=== PATIENT | female | born 1950 | race Two or more races ===

== ENCOUNTER 2023-07-06 16:47 | Emergency (ER) | payer OTHER ==
[~2023-07-06] VITALS: Ht 134.6 cm; Wt 51.3 kg
[2023-07-06] MEDS ORDERED: LEVOTHYROXINE25 MCG PO (16:55)
[2023-07-06 19:05] LABS: HEMATOCRIT 33.8 % (36.0-45.00); HEMOGLOBIN 11.5 g/dL (12.0-15.00); MEAN CELL VOLUME 86.1 fL (80.00-100.00); MEAN CORPUSCULAR HEMOGLOBIN 29.4 pg (27.00-32.0); MEAN CORPUSCULAR HGB CONC 34.1 g/dl (32.0-36.0); PLATELET COUNT 226 K/uL (150-450); RED BLOOD COUNT 3.92 M/uL (4.00-6.00); RED CELL DISTRIBUTION WIDTH 16.5 % (11.5-14.5)
[2023-07-06 19:20] LABS: INR 1.04; PARTIAL THROMBOPLASTIN TIME 24.9 SECONDS (22.0-34.0); PROTHROMBIN TIME 10.9 SECONDS (9.0-11.5)
[2023-07-06 19:21] LABS: CALCIUM 9.7 mg/dL (8.5-10.1); CREATININE SERUM 0.76 mg/dL (0.55-1.02); GFR 74.19; POTASSIUM 3.65 mEq/L (3.5-5.1)
[2023-07-06] MEDS ORDERED: APIXABAN 5 MG TABLET PO STA (19:33)
== END 2023-07-06 20:08 | disposition home or self-care (01) ==
LOC: ER 16:48
PROVIDERS: General Practice
DX: I82.C19 Acute embolism and thrombosis of unspecified internal jugular vein (principal)